=== PATIENT | female | born 1960 | race Caucasian/White ===

== ENCOUNTER → 2023-06-30 13:43 | Outpatient (REF) | payer BC, SELFPAY | LOC: WDC 13:43 | PROVIDERS: ATTENDING PHYSICIAN Family Medicine | DX: Z12.31 Encounter for screening mammogram for malignant neoplasm of breast (principal); Z78.0 Asymptomatic menopausal state | CPT/HCPCS: 77063; 77067; 77080 ==

== ENCOUNTER → 2024-03-29 14:47 | Outpatient (REF) | payer BC, SELFPAY | LOC: RAD 14:47 | PROVIDERS: ATTENDING PHYSICIAN Nurse Practitioner Adult Health; FAMILY PHYSICIAN Family Medicine | DX: R22.31 Localized swelling, mass and lump, right upper limb (principal); M79.644 Pain in right finger(s) | CPT/HCPCS: 73130 ==